=== PATIENT | female | born 1995 | race Caucasian/White ===

== ENCOUNTER 2018-08-29 20:25 | Emergency (ER) | payer OTHER ==
[~2018-08-29] VITALS: Wt 67.8 kg
[2018-08-29] MEDS ORDERED: SOD CHLORIDE 0.9% 1,000 ML IV STA (23:43)
[2018-08-29] MEDS ORDERED: ONDANSETRON 4 MG INJ IV STA (23:43)
[2018-08-29] MEDS ORDERED: KETOROLAC 30 MG INJ IV STA (23:43)
--- NOTE | 2018-08-29 23:47 | ERD ---
ER Documentation Chief Complaint Chief Complaint R sided pains since 1000; +N no VD. area in betwn abd and flank HPI This is a 22-year-old female with no significant past medical history presents to the ED with complaints of right-sided abdominal pain and flank pain since 10 AM this morning. Patient states pain has been waxing and waning since onset. States pain is sharp, currently 9 out of 10 intensity. She denies any radiation of her pain. No known exacerbating or relieving factors. She does report some nausea but denies any vomiting or diarrhea. Denies any fevers, chills, dysuria, hematuria, constipation, distention or bloating. Patient denies any history of similar pain. She did not take any medications for pain prior to arrival. Patient states she has a history of irregular menstrual cycles, her last menses was last month. ROS All systems reviewed and are negative except as per history of present illness. Medications Home Meds Active Scripts Ondansetron (Ondansetron Odt) 4 Mg Tab.rapdis, 4 MG PO Q6H PRN for NAUSEA AND/OR VOMITING, #10 TAB Prov:DISHIGRIKIANDOUGIE PA-C 08/30/18 Ibuprofen* (Motrin*) 400 Mg Tab, 400 MG PO Q6, #30 TAB Prov:DISHIGRIKIANZEPYUR N PA-C 08/30/18 Allergies Allergies: Coded Allergies: No Known Allergy (Unverified , 08/29/18) PMhx/Soc History of Surgery: No Anesthesia Reaction: No Hx Neurological Disorder: No Hx Respiratory Disorders: No Hx Cardiac Disorders: No Hx Psychiatric Problems: No Hx Miscellaneous Medical Probl: No Hx Alcohol Use: No Hx Substance Use: No Hx Tobacco Use: No Smoking Status: Never smoker Physical Exam Vitals Vital Signs Date Temp Pulse Resp B/P (MAP) Pulse Ox O2 O2 Flow FiO2 Time Delivery Rate 08/30/18 99.7 71 18 110/64 99 Room Air 03:02 (79) 08/29/18 100.3 93 22 125/74 98 20:45 (91) Physical Exam Const: No acute distress Head: Atraumatic Eyes: Normal Conjunctiva ENT: Normal External Ears, Nose and Mouth. Neck: Full range of motion. No meningismus. Resp: Clear to auscultation bilaterally Cardio: Regular rate and rhythm, no murmurs Abd: Soft,non tender, non distended. Normal bowel sounds. Negative Willis sign. Negative McBurney's. Skin: No petechiae or rashes Back: No midline or flank tenderness Ext: No cyanosis, or edema Neur: Awake and alert Psych: Normal Mood and Affect Result Diagram: 08/29/18608/29/186 Results 24 hrs Laboratory Tests Test 08/29/18 00:07 08/30/18 00:07 08/30/18 00:09 White Blood Count 10.0 10^3/ul Red Blood Count 4.40 10^6/ul Hemoglobin 13.7 g/dl Hematocrit 39.0 % Mean Corpuscular Volume 88.6 fl Mean Corpuscular Hemoglobin 31.1 pg Mean Corpuscular Hemoglobin Concent 35.1 g/dl Red Cell Distribution Width 12.0 % Platelet Count 254 10^3/UL Mean Platelet Volume 10.2 fl Immature Granulocytes % 0.500 % Neutrophils % 82.3 % Lymphocytes % 12.1 % Monocytes % 4.7 % Eosinophils % 0.1 % Basophils % 0.3 % Nucleated Red Blood Cells % 0.0 /100WBC Immature Granulocytes # 0.050 10^3/ul Neutrophils # 8.3 10^3/ul Lymphocytes # 1.2 10^3/ul Monocytes # 0.5 10^3/ul Eosinophils # 0.0 10^3/ul Basophils # 0.0 10^3/ul Nucleated Red Blood Cells # 0.0 10^3/ul Urine Color YELLOW Urine Clarity SLIGHTLY CLOUDY Urine pH 7.0 Urine Specific [place] 1.020 Urine Ketones TRACE mg/dL Urine Nitrite NEGATIVE mg/dL Urine Bilirubin NEGATIVE mg/dL Urine Urobilinogen NEGATIVE mg/dL Urine Leukocyte Esterase NEGATIVE Hortensia/ul Urine Microscopic RBC 3 /HPF Urine Microscopic WBC 3 /HPF Urine Squamous Epithelial Cells FEW /HPF Urine Amorphous Crystals FEW /HPF Urine Bacteria FEW /HPF Urine Mucus FEW /HPF Urine Hemoglobin NEGATIVE mg/dL Urine Glucose NEGATIVE mg/dL Urine Total Protein NEGATIVE mg/dl Sodium Level 139 mmol/L Potassium Level 4.2 mmol/L Chloride Level 103 mmol/L Carbon Dioxide Level 23 mmol/L Anion Gap 13 Blood Urea Nitrogen 7 mg/dl Creatinine 0.49 mg/dl Est Glomerular Filtrat Rate mL/min > 60 mL/min Glucose Level 109 mg/dl Calcium Level 9.8 mg/dl Total Bilirubin 0.3 mg/dl Direct Bilirubin 0.00 mg/dl Indirect Bilirubin 0.3 mg/dl Aspartate Amino Transf (AST/SGOT) 36 IU/L Alanine Aminotransferase (ALT/SGPT) 40 IU/L Alkaline Phosphatase 67 IU/L Total Protein 8.3 g/dl Albumin 4.9 g/dl Globulin 3.40 g/dl Albumin/Globulin Ratio 1.44 Lipase 64 U/L Bedside Urine pH (LAB) 7.0 Bedside Urine Protein (LAB) Negative Bedside Urine Glucose (UA) Negative Bedside Urine Ketones (LAB) Negative Bedside Urine Blood Trace-lysed Bedside Urine Nitrite (LAB) Negative Bedside Urine Leukocyte Esterase (L Negative POC Beta HCG, Qualitative NEGATIVE Current Medications Medications Dose Sig/Tracie Start Time Status Last (Trade) Ordered Route PRN Stop Time Admin Dose Reason Admin Sodium 1,000 ml @ Q1H STAT 08/29/18 DC 08/30/18 Chloride 1,000 mls/hr IV 23:43 08/30/18 00:13 00:42 Ondansetron 4 mg ONCE STAT 08/29/18 DC 08/30/18 HCl (Zofran IV 23:43 08/29/18 00:13 Inj) 23:46 Ketorolac 30 mg ONCE STAT 08/29/18 DC 08/30/18 Tromethamine IV 23:43 08/29/18 00:13 (Toradol) 23:46 Ibuprofen 600 mg ONCE ONCE 08/30/18 DC 08/30/18 (Motrin) PO 03:00 08/30/18 02:48 03:01 Procedures/MDM EMERGENT LABS AND DIAGNOSTIC STUDIES: Lab Results above were reviewed and interpreted by me as below. CBC: no e/o of systemic infection or severe anemia CMP: no e/o severe acidosis, alkalosis, renal failure, diabetic ketoacidosis, liver disease Urine: no significant hematuria or pyuria urine hcg: negative Radiology Results as interpreted by Radiology: PROCEDURE: XR Abdomen. CLINICAL INDICATION: Abdominal pain. TECHNIQUE: 2 frontal views of the abdomen. COMPARISON: None. FINDINGS: The bowel gas pattern is unremarkable. There is no bowel obstruction or free air. There is no organomegaly. There is no abnormal calcification. The osseous structures are unremarkable. IMPRESSION: Unremarkable abdomen radiograph. PROCEDURE: US Abdomen limited. CLINICAL INDICATION: r/o appendicitis right-sided abdominal pain times 1 day TECHNIQUE: Multiple real-time images were acquired of the patient's right lower quadrant utilizing a high resolution transducer. COMPARISON: DR CASEY 08/30/2018 FINDINGS: The appendix is not visualized. No free fluid is identified. IMPRESSION: No ultrasound evidence of appendicitis. If there is a high clinical suspicion for appendicitis, cross-sectional imaging is recommended. Nursing Notes Reviewed. Previous Medical Records requested via the Electronic Health Record. EMERGENCY DEPARTMENT COURSE / MEDICAL DECISION MAKIN yo F presenting with vague right sided abdominal and flank pain. The differential diagnosis includes but is not limited to appendicitis, cholelithiasis, cholecystitis, pancreatitis, hepatitis, gastritis, peptic ulcer disease, bowel obstruction, diverticulitis, nephrolithiasis, pyelonephritis, PID, AAA and amongst many others. She has no signs of an acute surgical abdomen on physical exam. Workup including CBC, CMP and UA unremarkable. KUB normal. Abdominal US unable to visualize appendix however my clinical suspicion for appendicitis is low as pt has not been having any fevers, focal RLQ tenderness, leukocytosis, anorexia or vomiting. At this time, there is no emergent cause of pt's pain and she can be managed on an outpatient basis. Pain was improved status post IVF, Toradol, Zofran and Motrin. Serial abdominal exams were normal and pt was comfortable, lying in bed and laughing with family at bedside. She was given copies of all of her results and told to follow up with her PCP provider in 2 days for re-evaluation. A list of community clinics were provided. Strict return precautions were discussed. SPECIALIST FOLLOW UP RECOMMENDED: None Patient has been advised to follow up with primary care in 1-2 days. Departure Diagnosis: Primary Impression: Abdominal pain Abdominal location: unspecified location Qualified Codes: R10.9 - Unspecified abdominal pain Condition: Stable Patient Instructions: Abdominal Pain Referrals: [facility] Additional Instructions: Work up here is negative. Follow up with PCP in 2 days, otherwise return to the ED for any or worsening symptoms. DOUGIE PRATT PA-C Aug 29, 2018 23:47
[2018-08-30] MEDS ORDERED: IBUP-1561 PO (02:42)
[2018-08-30] MEDS ORDERED: ONDA4TAB14 PO (02:45)
[2018-08-30] MEDS ORDERED: IBUPROFEN 600 MG TAB PO ONE (03:00)
[2018-08-30 03:02] VITALS: BP 110/64; PULSE 71; RESP 18
== END 2018-08-30 03:04 | disposition home or self-care (01) ==
LOC: FTE 20:25
DX: R10.9 Unspecified abdominal pain (principal)
CPT/HCPCS: 36415; 74018; 76705; 80053; 81001; 81003; 81025; 83690; 85025; 96374; 96375; J1885; J2405; J7030; Z7502; Z7610

== ENCOUNTER 2018-11-13 22:43 | Emergency (ER) | payer SELFPAY ==
[~2018-11-13] VITALS: Ht 162.6 cm; Wt 67.0 kg
[~2018-11-13 22:43] MED LIST: IBUP-1561 PO; ONDA4TAB14 PO
[2018-11-13 22:47] VITALS: Ht 162.6 cm; Wt 67.0 kg
[2018-11-14] MEDS ORDERED: ONDA4TAB14 PO (01:12)
[2018-11-14] MEDS ORDERED: KETOROLAC 15 MG INJ IM STA (01:36)
[2018-11-14] MEDS ORDERED: IBUP-1542 PO (02:29)
[2018-11-14 03:10] VITALS: BP 98/52; PULSE 72; RESP 19
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
== END 2018-11-14 03:12 | disposition home or self-care (01) ==
LOC: FTE 22:43
DX: R51 Headache (principal)
CPT/HCPCS: 81025; J1885; 96372